=== PATIENT | female | born 1995 | race Caucasian/White ===

== ENCOUNTER → 2017-01-17 | Outpatient (CLI) | payer OTHER ==
[~2017-01-17] MED LIST: COLACE100 MG PO; MOTRIN IB200 MG PO; MOTRIN-DPS800 MG PO; PERCOCET PO; PRENATAL VIT1 TAB PO
== END | disposition home or self-care (01) ==
LOC: RAD.S 09:20
PROC: 0HBU3ZX Excision of Left Breast, Percutaneous Approach, Diagnostic (ICD-10-PCS; principal; 2017-01-17)
DX: N60.92 Unspecified benign mammary dysplasia of left breast (principal)